=== PATIENT | female | born 1990 | race Caucasian/White ===

== ENCOUNTER 2019-06-27 12:54 | Emergency (ER) | payer OTHER ==
[2019-06-27 13:23] VITALS: BP 111/60
--- NOTE | 2019-06-27 13:29 | UC ---
Respiratory Complaint HPI - HPI Summary HPI Summary: 28-year-old female presents with 2 day history of general malaise, fatigue, body aches, chills, nasal congestion, runny nose, shortness of breath, wheezing , and a harsh, nonproductive cough. Patient states that shortness of breath and cough are worse when she lays down at night. No history of asthma. Reports a couple episodes of loose stools this morning. States she is trying to stop smoking and is only smoking 4-5 cigarettes a day. Denies ear pain, sore throat, chest pain, palpitations, abdominal pain, nausea, or vomiting. - History of Current Complaint Chief Complaint: UCRespiratory Stated Complaint: WHEEZY COUGH,CONGESTION Time Seen by Provider: 06/27/19 13:17 Hx Obtained From: Patient Hx Last Menstrual Period: beginning of last month Pain Intensity: 5 - Allergies/Home Medications Allergies/Adverse Reactions: Allergies Allergy/AdvReac Type Severity Reaction Status Date / Time Penicillins Allergy Difficulty Verified 06/27/19 13:18 Breathing Home Medications: Home Medications Escitalopram Oxalate [Lexapro] 1 tab QAM 06/27/19 [History Confirmed 06/27/19] PMH/Surg Hx/FS Hx/Imm Hx Previously Healthy: Yes Psychological History: Depression - Surgical History Surgical History: Yes Surgery Procedure, Year, and Place: HERNIA REPAIR A CHILD - Family History Known Family History: Positive: Hypertension - Social History Occupation: Employed Full-time Lives: With Family Alcohol Use: Rare Substance Use Type: None Smoking Status (MU): Light Every Day Tobacco Smoker Type: Cigarettes Amount Used/How Often: 3 cigarettes daily Length of Time of Smoking/Using Tobacco: 2 years; had stopped but recently started again Have You Smoked in the Last Year: Yes Household Exposure Type: Cigarettes Review of Systems All Other Systems Reviewed And Are Negative: Yes Constitutional: Positive: Chills, Fatigue Skin: Negative: Rash Eyes: Negative: Drainage, Eye Redness ENT: Positive: Nasal Discharge, Sinus Congestion. Negative: Sore Throat, Ear Ache, Sinus Pain/Tenderness Respiratory: Positive: Shortness Of Breath, Cough, Other - Wheezing Cardiovascular: Negative: Palpitations, Chest Pain Gastrointestinal: Positive: Diarrhea. Negative: Abdominal Pain, Vomiting, Nausea Genitourinary: Positive: Negative Neurological: Positive: Negative Psychological: Positive: Negative Is Patient Immunocompromised?: No Physical Exam - Summary Physical Exam Summary: GENERAL APPEARANCE: Well developed, well nourished, alert and cooperative, and appears to be in no acute distress. EYES: Conjunctiva clear. No drainage. EARS: External auditory canals and tympanic membranes clear, hearing grossly intact. NOSE: Mild-moderate nasal congestion. Clear nasal discharge. THROAT: Mild pharyngeal erythema, post-nasal drip, no tonsilar inflammation, swelling, exudate, or lesions. Uvula midline. NECK: Neck supple, non-tender without lymphadenopathy. CARDIAC: Normal S1 and S2. No S3, S4 or murmurs. Rhythm is regular. There is no peripheral edema, cyanosis or pallor. Extremities are warm and well perfused. Capillary refill is less than 2 seconds. Peripheral pulses intact. LUNGS: Bilateral diffuse wheezes. Bronchospastic nonproductive cough. ABDOMEN: Positive bowel sounds. Soft, nondistended, nontender. No guarding or rebound. No masses or hepatosplenomegally. MUSKULOSKELETAL: ROM intact to all extremities. No joint erythema or tenderness. Normal muscular development. Normal gait. SKIN: Skin normal color, texture and turgor with no lesions or eruptions. Triage Information Reviewed: Yes Vital Signs: Initial Vital Signs Temp 97.7 F 06/27/19 13:21 Pulse 81 06/27/19 13:21 Resp 16 06/27/19 13:21 BP 111/60 06/27/19 13:21 Pulse Ox 99 06/27/19 13:21 Vital Signs Reviewed: Yes Re-Evaluation - Re-Evaluation First Eval Re-Evaluation Time: 13:59 Change: Improved Comment: Patient reports breathing and cough much improved. Wheezing has subsided. Fine crackles auscultated in the left lower lung. Respiratory Course/Dx - Course Course Of Treatment: 28-year-old female presents with 2 day history of general malaise, fatigue, body aches, chills, nasal congestion, runny nose, shortness of breath, wheezing , and a harsh, nonproductive cough. Patient states that shortness of breath and cough are worse when she lays down at night. No history of asthma. Reports a couple episodes of loose stools this morning. States she is trying to stop smoking and is only smoking 4-5 cigarettes a day. Denies ear pain, sore throat, chest pain, palpitations, abdominal pain, nausea, or vomiting. Afebrile. Vital signs stable. Patient had mild nasal congestion, clear nasal discharge, mild pharyngeal erythema, post-nasal drip, no tonsilar inflammation, swelling, exudate, or lesions, cervical lymphadenopathy, bilateral diffuse wheezes, bronchospastic nonproductive cough, and otherwise unremarkable exam. Patient was given an albuterol nebulizer treatment in the clinic. She reported improvement in her breathing and cough. Post nebulizer treatment wheezes have subsided however fine crackles were noted in the left lower lung. Discussed with the patient that this was suggestive of a community-acquired pneumonia which could be viral however we will start her on a course of azithromycin. I will also prescribe her an albuterol inhaler 2 puffs every 4-6 hours as needed for shortness of breath, wheezing, or coughing fits, Tessalon Perles 1 capsule every 8 hours as needed for cough, and give recommended in [id number] decongestant for the nasal congestion. She is to follow-up with her primary care provider in 3-5 days for recheck of her symptoms. Anticipatory guidance and warning symptoms were reviewed with the patient. Verbalizes understanding and agrees with plan of care. - Differential Dx/Diagnosis Differential Diagnosis/HQI/PQRI: Bronchitis, Influenza, Lower Resp Infection, Other - URI Provider Diagnosis: Community acquired pneumonia, Reactive airway disease that is not asthma Discharge ED - Sign-Out/Discharge Documenting (check all that apply): Patient Departure All imaging exams completed and their final reports reviewed: No Studies - Discharge Plan Condition: Stable Disposition: HOME Prescriptions: Albuterol HFA INHALER* [Ventolin HFA Inhaler*] 2 puff INH Q4H PRN #1 mdi PRN Reason: Sob/Wheezing Azithromyxin EDWIN (NF) [Z-Edwin (Zithromax) 250 mg tabs #6] 2 tab PO .TODAY, THEN 1 DAILY #6 tab Benzonatate CAP* [Tessalon 100 MG CAP*] 100 mg PO TID PRN #21 cap PRN Reason: Cough Patient Education Materials: Community Acquired Pneumonia (ED), Wheezing (ED) Referrals: Rosa Adler PA [Primary Care Provider] - 3 Days Additional Instructions: Your history and exam are consistent with community acquired pneumonia with reactive airway disease (wheezing). This infection could be viral however with the concern for pneumonia will start you on an antibiotic. Start azithromycin 2 tabs today then 1 tab a day for the next 4 days. Use albuterol inhaler 2 puffs every 4-6 hours as needed for shortness breath, wheezing, or coughing fits. Use Tessalon Perles 1 capsule every 8 hours as needed for cough. Use an qkup-plw-nuquokh decongestant such as Sudafed to help with the congestion. Take over the counter acetaminophen (Tylenol) or ibuprofen (Advil, Motrin) according to directions as needed for pain or fever. Use salt water gargles several times a day if you have a sore throat. You may also use Chloraseptic spray or Cepacol lonzenges according to directions which contain a numbing medication and can provide some temporary relief from your sore throat. Follow up with your primary care provider in 3-5 days for a recheck of your symptoms. Seek immediate medical attention in the emergency room if you have fever greater than 100.5 F despite taking acetaminophen or ibuprofen, have chest pain , difficulty breathing, are unable to swallow, or have any worsening of symptoms. - Billing Disposition and Condition Condition: STABLE Disposition: Home
[2019-06-27] MEDS ORDERED: Albuterol 2.5 MG/3 ML NEB.SOL* (0.083%) INH ONE (13:34)
== END 2019-06-27 14:13 | disposition home or self-care (01) ==
LOC: UCCORT 12:54
DX: J18.9 Pneumonia, unspecified organism (principal); J45.909 Unspecified asthma, uncomplicated; F17.210 Nicotine dependence, cigarettes, uncomplicated; Z88.0 Allergy status to penicillin; F32.9 Major depressive disorder, single episode, unspecified
CPT/HCPCS: 99202; G0463

== ENCOUNTER 2019-07-08 15:41 | Emergency (ER) | payer OTHER ==
[2019-07-08 16:47] VITALS: BP 102/61
[2019-07-08] MEDS ORDERED: Ibuprofen ADULT LIQ* 600 MG/30 ML UDC PO ONE (18:06)
[2019-07-08] MEDS ORDERED: Albuterol 2.5 MG/3 ML NEB.SOL* (0.083%) INH ONE (18:06)
--- NOTE | 2019-07-08 18:06 | UC ---
UC General HPI - HPI Summary HPI Summary: pt was seen recently and tx for possible pneumonia with zithromax and an inhaler. she returns today because she has pain along the sides or her back with movement and coughing. the cough is ongoing from the recent illness. she denies fever, abdominal pain, chest pain and sob. she denies calf pain and swelling. she has no hx asthma. + smoker. her thinks she pulled her back from coughing. no hx vaping. - History of Current Complaint Chief Complaint: UCGeneralIllness Stated Complaint: COUGH/POSS. PULLED MUSCLE Time Seen by Provider: 07/08/19 17:55 Hx Obtained From: Patient Hx Last Menstrual Period: 07/01/19 Pain Intensity: 8 - Allergy/Home Medications Allergies/Adverse Reactions: Allergies Allergy/AdvReac Type Severity Reaction Status Date / Time Penicillins Allergy Difficulty Verified 07/08/19 16:48 Breathing PMH/Surg Hx/FS Hx/Imm Hx Psychological History: Anxiety - Surgical History Surgical History: Yes Surgery Procedure, Year, and Place: HERNIA REPAIR A CHILD - Family History Known Family History: Positive: Hypertension - Social History Lives: With Family Alcohol Use: Rare Substance Use Type: None Smoking Status (MU): Light Every Day Tobacco Smoker Type: Cigarettes Amount Used/How Often: 3 cigarettes daily Length of Time of Smoking/Using Tobacco: 2 years; had stopped but recently started again Have You Smoked in the Last Year: Yes Household Exposure Type: Cigarettes Review of Systems All Other Systems Reviewed And Are Negative: No Constitutional: Negative: Fever, Chills, Fatigue Eyes: Negative: Eye Redness ENT: Negative: Sore Throat, Ear Ache, Sinus Congestion Respiratory: Positive: Cough. Negative: Shortness Of Breath Cardiovascular: Negative: Palpitations, Chest Pain Gastrointestinal: Negative: Abdominal Pain, Vomiting, Diarrhea, Nausea Genitourinary: Negative: Dysuria, Hematuria, Frequency, Urgency Musculoskeletal: Negative: Calf Tenderness, Decreased ROM, Edema Neurological: Positive: Other - no saddle anesthesia or bowel/bladder dysfunction.. Negative: Weakness, Paresthesia, Numbness Physical Exam Vital Signs: Initial Vital Signs Temp 99.5 F 07/08/19 16:43 Pulse 75 07/08/19 16:43 Resp 17 07/08/19 16:43 BP 102/61 07/08/19 16:43 Pulse Ox 99 09/28/19 16:43 Diagnostics - Laboratory Lab Results: u/a=unremarkable(see result) - Radiology No standard instances Radiology Interpretation Completed By: ED Physician - cxr=RLL infiltrate Re-Evaluation - Re-Evaluation First Eval Re-Evaluation Time: 18:41 Change: Improved - LESS BACK DISCOMFORT AND COUGH Course/Dx - Differential Dx - Multi-Symptom Differential Diagnoses: Other - u/a=unremarkable and no cva tenderness thus no concern for pyelonephritis. cxr reviewed with dr reinoso and we agree to RLL infiltrate. no concern for back fx, acute abdomen or cauda equina. pt is non toxic and not hypoxic plus no n/v thus appropriate for out pt tx. - Diagnoses Provider Diagnosis: Pneumonia, Back pain Discharge ED - Sign-Out/Discharge Documenting (check all that apply): Patient Departure All imaging exams completed and their final reports reviewed: No - Discharge Plan Condition: Stable Disposition: HOME Prescriptions: DOXYcycline CAP(*) [DOXYcycline 100MG CAP(*)] 100 mg PO BID 10 Days #20 cap Naproxen [Naprosyn 500 mg tab] 500 mg PO BID PRN #10 tablet PRN Reason: Spasms - Back predniSONE TAB* [Deltasone 20 MG TAB*] 40 mg PO DAILY 2 Days #4 tab Patient Education Materials: Community Acquired Pneumonia (ED), Back Pain (ED) Forms: *Work Release Referrals: Rosa Adler PA [Primary Care Provider] - 5 Days Additional Instructions: USE THE RESCUE INHALER 2 PUFFS EVERY 6 HOURS. - Billing Disposition and Condition Condition: STABLE Disposition: Home
[2019-07-08] MEDS ORDERED: predniSONE TAB* 20 MG PO ONE (18:29)
[2019-07-08] MEDS ORDERED: DOXYcycline CAP(*) 100 MG PO ONE (18:31)
--- NOTE | 2019-07-09 08:41 | UC ---
- Progress Note Progress Note: Weight Recorder: Donald Warner Daniel, ([id number]) Hand Trimmer: MICHAEL ( KARLAANCE) Report Date: 07/08/2019 18:07:00 Report Status: Final ====== Start of Report Content Patient Name: RONNELL BENITEZ Medical Record# : [id number] Ordering Physician: Socorro BRIONES Acct.#: [id number] : Age: 28 Sex: F Location: [facility] [place] Exam Date: 07/08/191806 ADM Status: [facility] ER Order Information: CHEST PA LAT 2 S Accession Number: [id number] CPT: 30378 HISTORY: ongoing cough COMPARISONS: None relevant available at the time of dictation. VIEWS: 4: Frontal dual-energy and lateral views of the chest. FINDINGS: CARDIOMEDIASTINAL SILHOUETTE: The cardiomediastinal silhouette is normal. DENAE: The denae are normal. PLEURA: The costophrenic angles are sharp. No pleural abnormalities are noted. LUNG PARENCHYMA: There is linear opacification of the right lung base ABDOMEN: The upper abdomen is clear. There is no subphrenic gas. BONES AND SOFT TISSUES: No bone or soft tissue abnormalities are noted. OTHER: None. IMPRESSION: MINIMAL LINEAR ATELECTASIS OF THE RIGHT LUNG BASE. R2 Preliminary Imaging Read R2 <Electronically signed by Donald Warner MD in OV> 07/09/19816 Dictated By: Donald Warner MD Dictated Date/Time: 07/09/19816 Transcribed Date/Time: 09/29/19 0817 Copy to: CC:Rosa BRIONES; Red Snow MD; Socorro BRIONES [facility] - [facility] - [facility] [address] [place] [address] [address] [address] ph ([phone]) ph ([phone]) ph ([phone]) End of Report Content No change in treatment plan, treated for CAP. Course/Dx - Diagnoses Provider Diagnoses: Pneumonia, Back pain Discharge ED - Sign-Out/Discharge Documenting (check all that apply): Post-Discharge Follow Up All imaging exams completed and their final reports reviewed: Yes - Discharge Plan Condition: Stable Disposition: HOME Prescriptions: DOXYcycline CAP(*) [DOXYcycline 100MG CAP(*)] 100 mg PO BID 10 Days #20 cap Naproxen [Naprosyn 500 mg tab] 500 mg PO BID PRN #10 tablet PRN Reason: Spasms - Back predniSONE TAB* [Deltasone 20 MG TAB*] 40 mg PO DAILY 2 Days #4 tab Patient Education Materials: Community Acquired Pneumonia (ED), Back Pain (ED) Forms: *Work Release Referrals: Rosa Adler PA [Primary Care Provider] - 5 Days Additional Instructions: USE THE RESCUE INHALER 2 PUFFS EVERY 6 HOURS. - Billing Disposition and Condition Condition: STABLE Disposition: Home
== END 2019-07-08 18:48 | disposition home or self-care (01) ==
LOC: UCCORT 15:41
DX: J18.9 Pneumonia, unspecified organism (principal); M54.9 Dorsalgia, unspecified; Z88.0 Allergy status to penicillin; F17.210 Nicotine dependence, cigarettes, uncomplicated
CPT/HCPCS: 71046; 81003; 99213; A9270-GY; G0463; J7512

== ENCOUNTER 2019-07-14 14:17 | Emergency (ER) | payer OTHER ==
[2019-07-14 14:31] VITALS: BP 103/71
--- NOTE | 2019-07-14 15:21 | UC ---
Headache HPI - HPI Summary HPI Summary: 28 yo with several week history of feeling unwell, initially diagnosed as bronchitis (treated with zpack), followed by dx of pneumonia (treated with doxycycline, almost completed course). Respiratory symptoms are now resolved. Awoke yesterday with bilateral pressure in the temples, uincomfortable, with occasional increase in pain if she coughs or sneezes. Has no photophobia, neck pain, fever or vomiting. Her main concern is the persistence of this pain. Seen last night in the ER, CT of the brain was negative, normal CBC and basic chem panel. Was given iv benadryl and toradol per patient report without complete relief of pain, but she did have excessive sedation following this, and found that she could not remeember details of the ER visit, such as the result of the CT scan. Advised by her PCP to come here for assessment. [facility] record acquired and reviewed. - History Of Current Complaint Chief Complaint: UCHeadache Stated Complaint: HEAD PAIN/PRESSURE Time Seen by Provider: 07/14/19 14:47 Hx Obtained From: Patient Hx Last Menstrual Period: 06/30/19 Onset/Duration: Sudden Onset, Lasting Days - 2 Onset Of Symptoms: Sudden, Still Present Pain Intensity: 6 Timing: Constant Character: Throbbing, Pressure Location of Headache: Temporal Aggravating Factor(s): Nothing Allevating Factor(s): Nothing Associated Signs And Symptoms: Positive: Negative, Visual Changes, Other (Noted In Comments) - Risk Factors SAH Risk Factors: Negative Meningitis Risk Factors: Negative SDH Risk Factors: Negative Temporal Arteritis Risk Factors: Negative - Allergies/Home Medications Allergies/Adverse Reactions: Allergies Allergy/AdvReac Type Severity Reaction Status Date / Time Penicillins Allergy Difficulty Verified 07/08/19 16:48 Breathing Home Medications: Home Medications Aspirin/Acetaminophen/Caffeine [Excedrin Migraine Caplet] 1 tab PO ONCE [History Confirmed 07/14/19] PMH/Surg Hx/FS Hx/Imm Hx Previously Healthy: Yes - Surgical History Surgical History: Yes Surgery Procedure, Year, and Place: HERNIA REPAIR A CHILD - Family History Known Family History: Positive: Hypertension, Other - migraine: mother and sister. 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 Cardiovascular: Positive: Negative Gastrointestinal: Positive: Negative Genitourinary: Positive: Negative Motor: Positive: Negative Neurovascular: Positive: Negative Musculoskeletal: Positive: Negative Neurological: Positive: Headache Psychological: Positive: Negative Is Patient Immunocompromised?: No Physical Exam Triage Information Reviewed: Yes Appearance: Well-Appearing, Pain Distress - mild Vital Signs: Initial Vital Signs Temp 98.3 F 07/14/19 14:25 Pulse 75 07/14/19 14:25 Resp 18 07/14/19 14:25 BP 103/71 07/14/19 14:25 Pulse Ox 99 07/14/19 14:25 Vital Signs Reviewed: Yes Eye Exam: Normal - [place], normal EOM, no photophobia. ENT: Positive: Normal ENT inspection, Pharynx normal, TMs normal, Other - No tenderness to palpation in the temples. Dental Exam: Normal Neck: Positive: Supple, Nontender, No Lymphadenopathy Respiratory: Positive: Lungs clear, Normal breath sounds Cardiovascular: Positive: RRR Musculoskeletal: Positive: Strength Intact, ROM Intact Neurological Exam: Other - CNII-XII normal. Neurological: Positive: Alert, Muscle Tone Normal Psychological Exam: Normal Skin Exam: Normal Headache Course/Dx - Course Course Of Treatment: Reassured that there are no findings suggestive of intracraial pathology, headache most likely a tension headache. We reviewed CXR report from last visit, CT scan of the head report from [facility] , and discussed past respiratory illness, now resolved. Most likely has a tension headache. Suggested stop use of doxycycline. given ibuprofen for headache, suggest rest at home and day off work tomorrow to rest. Follow up with PCP if not better. - Differential Dx/Diagnosis Differential Diagnosis/HQI/PQRI: Migraine, Sinus Headache, Tension Headache, Viral Syndrome Provider Diagnosis: Tension type headache Discharge ED - Sign-Out/Discharge Documenting (check all that apply): Patient Departure All imaging exams completed and their final reports reviewed: No Studies - Discharge Plan Condition: Critical Disposition: HOME Patient Education Materials: Tension Headache (ED) Forms: *Work Release Referrals: Rosa Adler PA [Primary Care Provider] - Additional Instructions: STOP the use of doxycycline. I suspect that this is a tension headache. You have been given ibuprofen 800mg at 3:30 pm. Rest at home today and tomorrow, ensure high intake of fluids and adequate rest. CT of the brain last night was normal: no evidence of increased pressure or mass. - Billing Disposition and Condition Condition: CRITICAL Disposition: Home
[2019-07-14] MEDS ORDERED: Ibuprofen TAB* 400 MG PO ONE (15:34)
== END 2019-07-14 15:55 | disposition home or self-care (01) ==
LOC: UCCORT 14:17
DX: G44.209 Tension-type headache, unspecified, not intractable (principal); F17.210 Nicotine dependence, cigarettes, uncomplicated; Z88.0 Allergy status to penicillin; Z79.82 Long term (current) use of aspirin
CPT/HCPCS: 99212; A9270-GY; G0463

== ENCOUNTER 2019-09-26 15:54 | Emergency (ER) | payer MEDICAID, OTHER ==
[2019-09-26 16:13] VITALS: BP 118/61
--- NOTE | 2019-09-26 16:38 | UC ---
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 She has tried using flonase without relief of pain. No cough or dyspnea. She also has a small chalazion right lower eye lid. - History of Current Complaint Chief Complaint: UCGeneralIllness Stated Complaint: SINUS Time Seen by Provider: 09/26/19 16:25 Hx Obtained From: Patient Hx Last Menstrual Period: 09/04/19 Onset/Duration: Gradual Onset Pain Intensity: 5 Cough: None Associated Signs & Symptoms: Positive: Sinus Discomfort, Nasal Discharge - Epiglottits Risk Factors Epiglottis Risk Factors: Negative - Allergies/Home Medications Allergies/Adverse Reactions: Allergies Allergy/AdvReac Type Severity Reaction Status Date / Time Penicillins Allergy Difficulty Verified 09/26/19 16:13 Breathing PMH/Surg Hx/FS Hx/Imm Hx Psychological History: Anxiety - Surgical History Surgical History: Yes Surgery Procedure, Year, and Place: HERNIA REPAIR A CHILD - Family History Known Family History: Positive: Hypertension, Other - migraine: mother and sister. - Social History Occupation: Employed Full-time Lives: With Family Alcohol Use: Occasionally Substance Use Type: None Smoking Status (MU): Former Smoker Type: Cigarettes Amount Used/How Often: 3 cigarettes daily Length of Time of Smoking/Using Tobacco: 2 years; had stopped but recently started again Have You Smoked in the Last Year: Yes Household Exposure Type: Cigarettes Review of Systems All Other Systems Reviewed And Are Negative: Yes Constitutional: Positive: Fatigue Skin: Positive: Negative Eyes: Positive: Negative ENT: Positive: Sinus Congestion, Sinus Pain/Tenderness Respiratory: Positive: Negative Cardiovascular: Positive: Negative Gastrointestinal: Positive: Negative Genitourinary: Positive: Negative Motor: Positive: Negative Neurovascular: Positive: Negative Musculoskeletal: Positive: Negative Neurological: Positive: Headache Psychological: Positive: Negative Is Patient Immunocompromised?: No Physical Exam Triage Information Reviewed: Yes Appearance: Ill-Appearing - looks fatigued and mildly unwell Vital Signs: Initial Vital Signs Temp 98.7 F 09/26/19 16:09 Pulse 72 09/26/19 16:09 Resp 16 09/26/19 16:09 BP 118/61 09/26/19 16:09 Pulse Ox 100 09/26/19 16:09 Eyes: Positive: Conjunctiva Clear, Other: - right lower eyelid with 2 mm cyst with clear mucous. ENT: Positive: Pharyngeal erythema - posterior, TMs normal Dental Exam: Normal Neck: Positive: Supple, Nontender, No Lymphadenopathy Respiratory: Positive: Lungs clear, Normal breath sounds, No respiratory distress Cardiovascular Exam: Normal Musculoskeletal Exam: Normal Neurological Exam: Normal Psychological Exam: Normal Skin Exam: Normal Throat Pain/Nasal Course/Dx - Course Course Of Treatment: azithromycin for treatment of sinus infection. - Differential Dx/Diagnosis Differential Diagnosis/HQI/PQRI: Sinusitis, URI Provider Diagnosis: Sinusitis Discharge ED - Sign-Out/Discharge Documenting (check all that apply): Patient Departure All imaging exams completed and their final reports reviewed: No Studies - Discharge Plan Condition: Stable Disposition: HOME Prescriptions: cephALEXin [Keflex] 500 mg PO BID #20 capsule Patient Education Materials: Sinusitis (ED) Referrals: Rosa Adler PA [Primary Care Provider] - Additional Instructions: You have been prescribed cephalexin for treatment of sinusitis. There is a small risk that this could trigger an allergic reaction because iit has shares some chemical properties with penicillins. If you develop a rash, stop use immediately and use benadryl for any hives. Take the full course of treatment. Continue use of flonase spray because the effect can improve over days of use. follow up if you develop fever, cough or worsening symptoms. - Billing Disposition and Condition Condition: STABLE Disposition: Home
== END 2019-09-26 17:04 | disposition home or self-care (01) ==
LOC: UCCORT 15:54
DX: J32.9 Chronic sinusitis, unspecified (principal); H02.822 Cysts of right lower eyelid; Z87.891 Personal history of nicotine dependence; Z88.0 Allergy status to penicillin
CPT/HCPCS: 99212; G0463